=== PATIENT | male | born 1945 | race Caucasian/White ===

== ENCOUNTER 2020-08-29 06:07 | Inpatient (IN) | payer OTHER, MEDICAID ==
[~2020-08-29] VITALS: Ht 175.3 cm; Wt 112.8 kg
[2020-08-29] VITALS (12 sets, daily range): BP systolic 118–158; BP diastolic 67–97
[~2020-08-29 06:07] MED LIST: ACET-6 PO; CALC-179 PO; FOLITAB23 PO; MULT1TAB65 PO; VITA180C PO
[2020-08-29] MEDS ORDERED: VANCOMYCIN 1GM/250ML 250 ML IV ONE (07:30)
[2020-08-29] MEDS ORDERED: PREGABALIN CAPSULE 75 MG CAP PO ONE (07:30)
[2020-08-29] MEDS ORDERED: ACETAMINOPHEN IV 1000 MG/100ML (10MG/ML) IV ONE (07:30)
[2020-08-29] MEDS ORDERED: CELECOXIB 100 MG CAP PO ONE (07:30)
[2020-08-29] MEDS ORDERED: TRANEXAMIC ACID 20 ML ONE (07:34)
[2020-08-29] MEDS ORDERED: BUPIVACAINE 0.25% INJ 50ML VIAL ONE (07:34)
[2020-08-29] MEDS ORDERED: VANCOMYCIN HCL 1000 MG VL ONE ×2 (07:36→07:57)
[2020-08-29] MEDS ORDERED: KETOROLAC TROMETH 30 MG/ML 1ML VIAL ONE (07:36)
[2020-08-29] MEDS ORDERED: MORPHINE SULF PF 2 MG/2 ML SYRG ONE ×2 (07:38→08:41)
[2020-08-29] MEDS ORDERED: PROPOFOL 10 MG/ML 20 ML IV ONE ×4 (08:43→10:33)
[2020-08-29] MEDS ORDERED: BUPIVACAINE 0.5% P/F INJ 10 ML VIAL ONE (08:48)
[2020-08-29] MEDS ORDERED: ePHEDrine SULFATE 50 MG/ML AMP ONE (09:21)
[2020-08-29] MEDS ORDERED: diphenhdrAMINE HCL 50 MG/1 ML VL ONE (09:21)
[2020-08-29] MEDS ORDERED: LIDOCAINE 2% (LOCAL ANESTH.) PF 5ml SDV ONE (09:26)
[2020-08-29] MEDS ORDERED: ONDANSETRON HCL 4 MG/2 ML VIAL ONE (09:29)
[2020-08-29] MEDS ORDERED: DexAMETHasone SOD PHOS 10MG/1ML VIAL INJ ONE (09:29)
[2020-08-29] MEDS ORDERED: ACETAMINOPHEN 325 MG TAB PO PRN (11:15)
[2020-08-29] MEDS ORDERED: MORPHINE SULFATE INJECTION 2 MG/ML SYRG IV PRN (11:15)
[2020-08-29] MEDS ORDERED: ONDANSETRON HCL 4 MG/2 ML VIAL IV PRN ×2 (11:15→12:00)
[2020-08-29] MEDS ORDERED: NITROGLYCERIN 0.4 MG SL TAB SL PRN (11:15)
[2020-08-29] MEDS ORDERED: OXYCODONE W/ ACETAMINOPHEN 5/325MG TABLET PO PRN (11:15)
[2020-08-29] MEDS ORDERED: BISACODYL 5 MG EC TAB PO PRN (11:15)
[2020-08-29] MEDS ORDERED: DexAMETHasone SOD PHOS 10MG/1ML VIAL INJ IV PRN (12:00)
[2020-08-29] MEDS ORDERED: NALOXONE HCL 0.4 MG/ML VIAL IV PRN (12:00)
[2020-08-29] MEDS ORDERED: HYDROmorphone HCL 2 MG/ML VL IV PRN (12:00)
[2020-08-29] MEDS ORDERED: diphenhdrAMINE HCL 50 MG/1 ML VL IV PRN (12:00)
[2020-08-29] MEDS ORDERED: KETOROLAC TROMETH 30 MG/ML 1ML VIAL IV PRN (12:00)
[2020-08-29] MEDS: LACTATED RINGER'S 1,000 ML IV SCH ×2 (18:06→21:22)
[2020-08-29] MEDS: ceFAZolin 1GM/50ML 50 ML IV SCH ×2 (18:07→23:30)
[2020-08-29] MEDS: SODIUM CHLOR 0.9% PF (SALINE LOCK) 10ML VIAL/SYR IV SCH ×2 (18:28→21:22)
[2020-08-29] MEDS: DOCUSATE SOD 100 MG CAP PO SCH (21:23)
[2020-08-30] VITALS (21 sets, daily range): BP systolic 103–142; BP diastolic 43–90
[2020-08-30] MEDS: SODIUM CHLOR 0.9% PF (SALINE LOCK) 10ML VIAL/SYR IV SCH ×3 (05:22→21:33)
[2020-08-30] MEDS ORDERED: ceFAZolin 1GM/50ML 50 ML IV ONE (05:30)
[2020-08-30 07:01] LABS: Hematocrit 40.1 % (41.0-53.0); Hemoglobin 13.5 g/dL (13.5-17.5)
[2020-08-30 07:28] LABS: Albumin 3.3 g/dL (3.4-5.0); Calcium 8.5 mg/dL (8.5-10.1); Potassium 4.3 mmol/L (3.5-5.1)
[2020-08-30 07:31] LABS: Bilirubin, Total 0.5 mg/dL (0.2-1.0); Total Protein 6.8 g/dL (6.4-8.2)
[2020-08-30] MEDS: LACTATED RINGER'S 1,000 ML IV SCH ×3 (08:20→17:11)
[2020-08-30] MEDS: DOCUSATE SOD 100 MG CAP PO SCH ×2 (09:38→21:33)
[2020-08-30] MEDS: MULTIPLE VITAMINS W/ MINERALS TAB PO SCH (09:38)
[2020-08-30] MEDS: ENOXAPARIN SOD 40 MG/0.4 ML SYRINGE SC SCH (09:39)
[2020-08-30] MEDS: HYDROmorphone HCL 2 MG/ML VL IV PRN ×2 (14:59→21:25)
[2020-08-31] MEDS: HYDROmorphone HCL 2 MG/ML VL IV PRN ×2 (00:01→06:15)
[2020-08-31] MEDS: LACTATED RINGER'S 1,000 ML IV SCH ×2 (04:03→14:18)
[2020-08-31 04:59] VITALS: BP 118/61
[2020-08-31 05:31] LABS: Hematocrit 34.1 % (41.0-53.0); Hemoglobin 12.1 g/dL (13.5-17.5)
[2020-08-31] MEDS: SODIUM CHLOR 0.9% PF (SALINE LOCK) 10ML VIAL/SYR IV SCH ×2 (05:48→14:18)
[2020-08-31 08:10] VITALS: BP 112/50
[2020-08-31 09:00] VITALS: BP 112/50
[2020-08-31 09:04] VITALS: BP 112/50
[2020-08-31] MEDS: MULTIPLE VITAMINS W/ MINERALS TAB PO SCH (09:32)
[2020-08-31] MEDS: DOCUSATE SOD 100 MG CAP PO SCH (09:33)
[2020-08-31] MEDS: ENOXAPARIN SOD 40 MG/0.4 ML SYRINGE SC SCH (09:33)
[2020-08-31 13:00] VITALS: BP 112/57
[2020-08-31 17:00] VITALS: BP 119/61
== END 2020-08-31 20:54 | disposition home health service (06) | DRG 470 ==
LOC: OVERFLOW 06:07 → EDSTATUS 07:00 → TELE-WESTW 13:04
PROVIDERS: ADMIT Orthopaedic Surgery; ATTEND Orthopaedic Surgery
PROC: 0LSQ0ZZ Reposition Right Knee Tendon, Open Approach (ICD-10-PCS; 2020-08-29)
PROC: 0SNC0ZZ Release Right Knee Joint, Open Approach (ICD-10-PCS; 2020-08-29)
PROC: 0SRC0J9 Replacement of Right Knee Joint with Synthetic Substitute, Cemented, Open Approach (ICD-10-PCS; principal; 2020-08-29 08:38)
DX: M17.11 Unilateral primary osteoarthritis, right knee (principal); M24.561 Contracture, right knee; Z20.822 Contact with and (suspected) exposure to COVID-19; M23.41 Loose body in knee, right knee
CPT/HCPCS: 36415; 73560; 80053; 85014; 85018; 86850; 86900; 86901; 97163; G0378; J0131; J0690; J1100; J1885; J2001; J2405; J2704; J3490